=== PATIENT | female | born 1985 | race Caucasian/White ===

== ENCOUNTER 2017-08-07 06:04 | Day surgery (SDC) | payer OTHER ==
[2017-07-28 16:27] VITALS: BMI 30.7
[2017-08-07] MEDS ORDERED: ePHEDrine SULFATE 50 MG/1 ML AMPULE ONE (06:58)
[2017-08-07] MEDS ORDERED: PROPOFOL 20 ML ONE ×4 (06:58)
[2017-08-07] MEDS ORDERED: SUCCINYLCHOLINE CHLORIDE 200 MG/10 ML VIAL ONE (06:58)
[2017-08-07] MEDS ORDERED: ceFAZolin SODIUM 1 GM VIAL ONE (07:02)
[2017-08-07] MEDS ORDERED: KETOROLAC TROMETHAMINE 30 MG/1 ML VIAL ONE (07:02)
[2017-08-07] MEDS ORDERED: ONDANSETRON 4 MG/2 ML VIAL ONE (07:02)
[2017-08-07] MEDS ORDERED: DEXAMETHASONE SOD PHOSPHATE 4 MG/1 ML VIAL ONE (07:02)
[2017-08-07] MEDS ORDERED: CEFAZOLIN 2 GM in DEXTROSE 5%-WATER - 100 ML IVPB ONE (07:04)
[2017-08-07] MEDS ORDERED: TRANEXAMIC ACID 1000 MG/10 ML VIAL ONE ×2 (07:08→08:51)
[2017-08-07] MEDS ORDERED: BUPIVACAINE HCL/EPINEPHRINE/PF 30 ML VIAL IJ ONE (07:08)
[2017-08-07] MEDS ORDERED: VANCOMYCIN 1,000 MG VIAL (RESTRICTED TO ID ONLY) ONE (07:08)
[2017-08-07] MEDS ORDERED: DEXAMETHASONE SOD PHOSPHATE/PF 10 MG/ML SDV ONE ×2 (07:20→07:35)
[2017-08-07] MEDS ORDERED: MIDAZOLAM HCL 2 MG/2 ML SINGLE DOSE VIAL ONE ×2 (07:20→07:35)
[2017-08-07] MEDS ORDERED: ROPIVACAINE HCL 0.5% 30ML VIAL ONE (07:20)
--- NOTE | 2017-08-07 07:27 | HP ---
Admitting History and Physical - Primary Care Physician PCP: Woodrow Mendoza (Ortho Surgeon) - Admission Chief Complaint: Tore my left ACL History of Present Illness: 32 year old female without any significant PMHx. Here today for elective repair of her torn LEFT ACL. 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: No: Alzheimer's, CVA, Dementia, Migraine, Multiple Sclerosis, Peripheral Neuropathy, Parkinson's, Seizure, Syncope, TIA, Vertigo, Other Cardiovascular: No: AFIB, Aneurysm, Aortic Insufficiency, Aortic Stenosis, CAD, CHF, Deep Vein Thrombosis, HTN, Hyperlipdemia, CA, Mitral Insufficiency, Mitral Stenosis, Murmur, Pulmonary Hypertension, Other Pulmonary: No: Asthma, Bronchitis, Cancer, COPD, O2 Dependent, Pneumonia, Previously Intubated, Pulmonary Embolus, Pulmonary Fibrosis, Sleep Apnea, Other Gastrointestinal: No: Ascites, Cancer, Constipation, Crohn's Disease, Diverticulitis, Diverticulosis, Esophageal Varices, Gastritis, GERD, GI Bleed, Hemorrhoids, Hiatal Hernia, Inflamatory Bowel Disease, Irritable Bowel Disease, Pancreatitis, Peptic Ulcer Disease, Ulcerative Colitis, Other Hepatobiliary: No: Cirrhosis, Cholelithiasis, Cholecystitis, Choledocholithiasis , Hepatitis A, Hepatitis B, Hepatitis C, Other Renal/: No: Renal Failure, Renal Inusuff, BPH, Cancer, Hematuria, Hemodialysis , Neurogenic Bladder, Renal Calculi, UTI, Other Reproductive: No: Ectopic , Endometriosis, Fibroids, PID, Polycystic Ovary Syndrome, Postmenopausal, Other ...LMP: 07/18/17 ...: No Heme/Onc: No: Anemia, B12 Deficiency, Bleeding Disorder, Cancer, Current Chemotherapy, Current Radiation Therapy, Hemochromatosis, Hypercoaguable State, Myeloproliferative Synd, Sickle Cell Disease, Sickle Cell Trait, Thrombocytopenia, Other Infectious Disease: No: AIDS, C-Diff, Herpes Zoster, HIV, MRSA, STD's, Tuberculosis, VREF, Other Psych: No: Addictions, Anxiety, Bipolar, Depression, Panic, Psychosis, Schizophrenia, Other Musculoskeletal: No: Bursitis, Chronic low back pain, Hemiparesis, Hemiplegia, Osteoarthritis, Paraplegia, Other Rheumatology: No: Fibromyalgia, Gout, Lupus, Rheumatoid Arthritis, Sarcoidosis, Vasculitis, Other ENT: No: Allergic Rhinitis, Sinusitis, Other Endocrine: No: [place]'s Disease, [place]'s Disease, Diabetes Insipidus, Diabetes Mellitus, Hyperparathyroidism, Hyperthyroidism, Hypothyroidism, Osteopenia, SIADH, Other Dermatology: No: Basal Cell, Cellulitis, Eczema, Melanoma, Psoriasis, Squamous Cell, Other - Past Surgical History Past Surgical History: Yes: None - Smoking History Smoking history: Never smoked Have you smoked in the past 12 months: No - Alcohol/Substance Use Hx Alcohol Use: Yes (social) History of Substance Use: reports: None - Social History ADL: Independent History of Recent Travel: No Home Medications - Allergies Allergies/Adverse Reactions: Allergies Allergy/AdvReac Type Severity Reaction Status Date / Time No Known Allergies Allergy Verified 08/07/17 06:45 - Home Medications Home Medications: Ambulatory Orders Levonorgestrel-Ethin Estradiol [Vienva-28 Tablet] 1 each PO DAILY 07/28/17 Review of Systems - Review of Systems Constitutional: reports: No Symptoms Eyes: reports: No Symptoms HENT: reports: No Symptoms Neck: reports: No Symptoms Cardiovascular: reports: No Symptoms Respiratory: reports: No Symptoms Gastrointestinal: reports: No Symptoms Genitourinary: reports: No Symptoms Breasts: reports: No Symptoms Reported Musculoskeletal: reports: Decreased ROM Integumentary: reports: No Symptoms Neurological: reports: No Symptoms Endocrine: reports: No Symptoms Hematology/Lymphatic: reports: No Symptoms Psychiatric: reports: No Symptoms Physical Examination Vital Signs: Vital Signs Temperature 98.1 F 08/07/17 06:58 Pulse Rate 86 08/07/17 06:58 Respiratory Rate 17 08/07/17 06:58 Blood Pressure O2 Sat by Pulse Oximetry (%) 97 08/07/17 06:58 Constitutional: Yes: Well Nourished, No Distress, Calm Eyes: Yes: WNL, Conjunctiva Clear, EOM Intact HENT: Yes: WNL, Atraumatic, Normocephalic Neck: Yes: WNL, Supple, Trachea Midline Cardiovascular: Yes: WNL, Regular Rate and Rhythm Respiratory: Yes: WNL, Regular, CTA Bilaterally Gastrointestinal: Yes: WNL, Normal Bowel Sounds, Soft Musculoskeletal: Yes: Other (LEFT KNEE --> + Jake & anterior drawer test = ACL tear (confirmed on MRI)) Extremities: Yes: WNL Edema: No Peripheral Pulses WNL: Yes Integumentary: Yes: WNL Neurological: Yes: WNL, Alert, Oriented ...Motor Strength: WNL Psychiatric: Yes: WNL Imaging - Results MRI: Report Reviewed (Torn left ACL) Problem List - Problems (1) Left ACL tear Assessment/Plan: NPO IVF GI / DVT ppx Cefazolin 2gm IVPB x1 OR today for repair of LEFT ACL Plan for dc home today after surgery Code(s): S83.512A - SPRAIN OF ANTERIOR CRUCIATE LIGAMENT OF LEFT KNEE, INIT
[2017-08-07] MEDS ORDERED: BUPIVACAINE HCL/PF (5 MG/ML) 30 ML VIAL IJ ONE (07:35)
--- NOTE | 2017-08-07 09:23 | DS ---
Physical Examination Vital Signs: Vital Signs Temperature 98.1 F 08/07/17 06:58 Pulse Rate 86 10 06:58 Respiratory Rate 17 08/07/17 06:58 Blood Pressure O2 Sat by Pulse Oximetry (%) 97 08/07/17 06:58 Discharge Summary Reason For Visit: ANTERIOR CRUCIATE LIGAMENT TEAR, LEFT KNEE Current Active Problems Left ACL tear (Acute) Condition: Stable - Instructions Diet, Activity, Other Instructions: Post Operative Instructions: ACL Reconstruction Dr. Woodrow Mendoza 1. Pain following an ACL reconstruction is variable and can be significant. Some patients will have more pain than others. You have been provided with a prescription for medication that contains a narcotic. You are not allowed to drive while on this medication. Y Feel free to take medications such as Ibuprofen or Naprosyn in addition to the pain medicine if you do not have any problems with the NSAID class of medications. YOU SHOULD TAKE ASPIRIN 81 MG TWICE A DAY FOR 10 DAYS 2. You should not remove the bandages for 24 hours unless directed otherwise. You may shower at that point. You are not allowed to bathe or go swimming until the sutures are removed. Put band-aids on the sutures after your shower and do not put any creams or lotions over the incisions. 3. You are allowed to put all your weight on the leg and bend your knee. 4. Getting the knee straight is your most important goal during the first 72 hours following an ACL reconstruction. Try not to lie down with a pillow under your knee. Instead the pillow should be under your ankle, thus allowing you to push your knee straight down into the bed. This is a very important milestone to achieve before your first post-surgery visit with me. 5. Swelling around the knee is normal following an ACL reconstruction. 6. The area around the knee and along the front of your cabral will also become swollen and black and blue. 7. Apply ice to the knee for 15 min every hour or so. You may continue this for as many days as you like. 8. Please call the office to schedule a visit to have your sutures removed. 9. If for any reason you believe you may have an infection or are concerned, please feel free to call me. I can be reached through our office number 24 hours a day. 10. Please call our office with any questions; we will review the surgical findings during your post operative visit. Disposition: HOME - Home Medications Comprehensive Discharge Medication List: Ambulatory Orders Levonorgestrel-Ethin Estradiol [Vienva-28 Tablet] 1 each PO DAILY 07/28/17
--- NOTE | 2017-08-07 09:23 | OP ---
Operative Note - Note: Operative Date: 08/07/17 Pre-Operative Diagnosis: Left knee ACL tear Operation: Left knee ACLR- Post-Operative Diagnosis: Same as Pre-op Surgeon: Woodrow Mendoza Anesthesiologist/ANIMAL HEALTH TECHNICIAN: Arnie Ly Anesthesia: General Operative Report Dictated: Yes
--- NOTE | 2017-08-07 09:28 | SURG ---
Surgery Biodiesel Product Manager Note Biodiesel Product Manager: Mohit Whitfield PA-C Date of Service: 08/07/17 Diagnosis: Left knee ACL tear Procedure: Left knee arthroscopy, repair Left knee ACL with allograft I was present for the entirety of the operative procedure. For further detail, please refer to operative report. Visit type - Case Type Case Type: Scheduled Admission - New patient This patient is new to me today: Yes Date on this admission: 08/07/17
[2017-08-07] MEDS ORDERED: ONDANSETRON 4 MG/2 ML VIAL IVPUSH PRN (10:29)
[2017-08-07] MEDS ORDERED: oxyCODONE HCL 5 MG TABLET PO PRN ×2 (10:29)
[2017-08-07] MEDS ORDERED: LACTATED RINGERS SOLUTION 1,000 ML IV SCH (10:30)
[2017-08-07] MEDS ORDERED: HYDROmorphone HCL/PF 1 MG/ML VIAL (FOR PYXIS CHARGING ONLY) ONE (10:42)
[2017-08-07] MEDS ORDERED: oxyCODONE HCL 5 MG TABLET ONE (11:36)
[2017-08-07 13:25] VITALS: BP 115/74; PULSE 71; TEMP 98.2
--- NOTE | 2017-08-12 10:23 | PATH ---
Surgical Pathology Report Patient Name: CRISTO DELGADO [facility]. Rec. #: [id number] /Age/Gender: 1985 (Age: 32) / F Account: [id number] Location: [facility] AMBULATORY Taken: 08/07/2017 Received: 08/07/2017 Reported: 08/12/2017 Physicians: Woodrow Mendoza M.D. Specimen(s) Received SHAVINGS LEFT KNEE Clinical History Left ACL tear Final Diagnosis LEFT KNEE, SHAVINGS, LEFT ACL REPAIR: FIBROADIPOSE TISSUE, SYNOVIUM, AND FIBRO-SYNOVIAL TISSUE. Electronically Signed Edelmira Champion M.D. Gross Description Received in formalin, labeled "shavings left knee," is a 4.3 x 3.5 x 0.3 cm. aggregate of ruelas-yellow soft tissue fragments. A insurance verification representative portion is submitted in one cassette. /08/10/201708/10/2017
== END 2017-08-07 13:00 | disposition home or self-care (01) ==
LOC: FASU 06:04
PROVIDERS: ATTEND Orthopaedic Surgery
PROC: 0MRP47Z Replacement of Left Knee Bursa and Ligament with Autologous Tissue Substitute, Percutaneous Endoscopic Approach (ICD-10-PCS; principal; 2017-08-07 08:17)
DX: S83.512A Sprain of anterior cruciate ligament of left knee, initial encounter (principal); X58.XXXA Exposure to other specified factors, initial encounter; Y93.9 Activity, unspecified; Y92.9 Unspecified place or not applicable
CPT/HCPCS: 84703; 88304-TC; 94760